=== PATIENT | male | born 1950 | race Two or more races ===

== ENCOUNTER 2020-07-22 10:48 | Emergency (ER) | payer OTHER ==
[~2020-07-22] VITALS: Ht 175.3 cm; Wt 74.8 kg
[2020-07-22] MEDS ORDERED: KEPPRA500 MG (11:13)
[2020-07-22] MEDS ORDERED: FOLIXAPURE5000 UNIT (11:13)
== END 2020-07-22 12:30 | disposition home or self-care (01) ==
LOC: ER 10:48
DX: H92.02 Otalgia, left ear (principal)

== ENCOUNTER 2020-08-22 10:46 | Outpatient (CLI) | payer OTHER ==
[~2020-08-22 10:46] MED LIST: FOLIXAPURE5000 UNIT; KEPPRA500 MG
== END 2020-08-22 13:16 | disposition home or self-care (01) ==
LOC: RAD 10:46
PROVIDERS: ATTEND Family Medicine Adult Medicine
DX: I69.320 Aphasia following cerebral infarction (principal); R07.89 Other chest pain

== ENCOUNTER 2022-06-27 18:32 | Emergency (ER) | payer OTHER ==
[~2022-06-27] VITALS: Ht 172.7 cm; Wt 72.6 kg
== END 2022-06-27 19:18 | disposition home or self-care (01) ==
LOC: ER 18:32
DX: L50.9 Urticaria, unspecified (principal)

== ENCOUNTER → 2023-01-18 | Emergency (ER) | payer OTHER ==
[~2023-01-18] VITALS: Ht 175.3 cm; Wt 79.4 kg
== END | disposition home or self-care (01) ==
LOC: ER
DX: S70.01XA Contusion of right hip, initial encounter (principal); W18.39XA Other fall on same level, initial encounter; Y93.9 Activity, unspecified; Y92.018 Other place in single-family (private) house as the place of occurrence of the external cause; Y99.9 Unspecified external cause status
CPT/HCPCS: 73522; 96372; 99284; J1885

== ENCOUNTER 2023-06-23 10:58 | Emergency (ER) | payer OTHER ==
[~2023-06-23] VITALS: Ht 175.3 cm; Wt 76.7 kg
== END 2023-06-23 13:38 | disposition home or self-care (01) ==
LOC: ER
DX: R51.9 Headache, unspecified (principal); I69.893 Ataxia following other cerebrovascular disease; I69.854 Hemiplegia and hemiparesis following other cerebrovascular disease affecting left non-dominant side

== ENCOUNTER 2025-04-20 12:56 | Emergency (ER) | payer OTHER ==
[~2025-04-20] VITALS: Ht 175.3 cm; Wt 74.8 kg
[2025-04-20] MEDS ORDERED: KETOROLAC TROMETHAMINE 30 MG VIAL IM ONE (14:45)
[2025-04-20] MEDS ORDERED: CYCLOBENZAPRINE HCL 5 MG TABLET PO ONE (14:45)
[2025-04-20] MEDS ORDERED: KETOROLAC TROMETHAMINE 30 MG VIAL ONE (14:49)
[2025-04-20 16:01] LABS: BASO % 0.4 % (0.1-1.2); EOS # 0.01 (0.04-0.54); EOS % 0.2 % (0.7-7.0); LYMPH # 1.52 (1.18-3.74); LYMPH % 30.8 % (19.3-53.1); MEAN PLATELET VOLUME 11.40 fl (9.4-12.4); MONO # 0.43 (0.24-0.82); MONO % 8.7 % (4.7-12.5); NEUT # 2.95 (1.56-6.13); NEUT % 59.7 % (34.0-71.1); RED CELL DISTRIBUTION WIDTH 11.7 % (11.6-14.4)
[2025-04-20 16:29] LABS: ALT/SGPT 37.0 U/L (12-78); AST/SGOT 24.0 U/L (15-37); BILIRUBIN TOTAL 0.76 mg/dL (0.3-1.2); BUN CREA RATIO 14.0 (7.0-25.0); CREATININE SERUM 0.98 mg/dL (0.70-1.30); GFR 74.77; GLOBULINA 3.5 G/DL (2.4-3.5); GLUCOSE FASTING 95.0 mg/dL (65-100); OSMOLALITY SERUM 278.0 MOSM/KG (275-295)
[2025-04-20] MEDS ORDERED: 0.9 % SODIUM CHLORIDE 1,000 ML IV SCH (20:00)
[2025-04-21] MEDS ORDERED: PEPCID AC20 MG PO (01:27)
[2025-04-21] MEDS ORDERED: NORFLEX100MG PO (01:27)
[2025-04-21] MEDS ORDERED: IBU600 MG PO (01:27)
== END 2025-04-21 02:28 | disposition home or self-care (01) ==
LOC: ER 12:56
PROVIDERS: General Practice
DX: M54.50 Low back pain, unspecified (principal); B20 Human immunodeficiency virus [HIV] disease; I10 Essential (primary) hypertension; I69.359 Hemiplegia and hemiparesis following cerebral infarction affecting unspecified side; G30.8 Other Alzheimer's disease; F02.80 Dementia in other diseases classified elsewhere, unspecified severity, without behavioral disturbance, psychotic disturbance, mood disturbance, and anxiety; T14.8XXA Other injury of unspecified body region, initial encounter; W18.39XA Other fall on same level, initial encounter; Y93.F1 Activity, caregiving, bathing; Y92.018 Other place in single-family (private) house as the place of occurrence of the external cause
CPT/HCPCS: 36415; 70450; 70490; 72131; 96372; 99284; J1885